=== PATIENT | male | born 1970 | race Caucasian/White ===

== ENCOUNTER 2018-03-28 12:55 | Emergency (ER) | payer MEDICAID, SELFPAY ==
[2018-03-28 13:04] VITALS: BP 123/79; PULSE 79; RESP 16; TEMP 36.9; O2SAT 98
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
[2018-03-28 13:59] LABS: Abs Immature Grans 0.03 k/cumm (0.0-0.09); Absolute Basophil Count 0.03 k/cumm (0.0-0.2); Absolute Eosinophil Count 0.28 k/cumm (0.0-0.7); Absolute Lymphocyte Count 2.06 k/cumm (1.2-3.4); Absolute Monocyte Count 1.14 k/cumm (0.11-0.7); Basophils % 0.2; Eosinophils % 2.1; HCT 46.1 % (40.0-50.0); HGB 15.3 g/dL (13.5-17.5); Immature Grans % 0.2; Lymphocytes % 15.6; Mean Corp. HGB Concentration 33.2 g/dL (32.0-36.0); Mean Corpuscular Hemoglobin 30.8 pg (27.0-33.0); Mean Corpuscular Volume 92.8 fL (80-95); Mean Platelet Volume 9.4 fL (8.0-11.0); Monocytes % 8.6; Neutrophils % 73.3; Platelet Count 376 x1000/uL (130-400); RBC 4.97 m/cumm (4.50-6.00); RBC Distribution Width 13.2 % (11.8-14.1)
[2018-03-28] MEDS: Normal Saline 1,000 ML 150 ML IV (14:00)
[2018-03-28 14:02] LABS: Absolute Neutrophil Count 9.68 k/cumm (1.2-6.7)
[2018-03-28 14:13] LABS: ALT 169 U/L (12-78); AST 123 U/L (15-37); Albumin 4.1 g/dL (3.4-5.0); Alkaline Phosphatase 82 U/L (46-116); Anion Gap 10.9 mmol/L (3-11); BUN 9 mg/dL (7-18); Bilirubin, Total 0.4 mg/dL (0.2-1.0); CO2 29.1 mmol/L (21.0-32.0); Calcium 9.6 mg/dL (8.5-10.1); Chloride 101 mmol/L (98-107); ETHANOL BLOOD 88.1 mg/dL (<3); Glucose 78 mg/dL (70-100); Potassium 4.1 mmol/L (3.5-5.1); Sodium 141 mmol/L (136-145); Total Protein 8.1 g/dL (6.4-8.2)
[2018-03-28] MEDS: Acetaminophen 500 MG TAB (14:50)
[2018-03-28] MEDS: Omnipaque 350 MG/ML 100 ML BTL IJ (15:29)
[2018-03-28 16:05] VITALS: BP 120/72; PULSE 70; RESP 16; TEMP 36.9; O2SAT 98
[2018-03-29 09:30] LABS: Kit/Specimen SENT
== END 2018-03-28 16:03 | disposition home or self-care (01) ==
PROVIDERS: Emergency Provider Emergency Medicine; PCP Nurse Practitioner Family
DX: S70.02XA Contusion of left hip, initial encounter (principal); S00.81XA Abrasion of other part of head, initial encounter; R51 Headache; V48.5XXA Car driver injured in noncollision transport accident in traffic accident, initial encounter; F10.929 Alcohol use, unspecified with intoxication, unspecified; Y90.4 Blood alcohol level of 80-99 mg/100 ml
CPT/HCPCS: 36415; 74177; 80053; 96360; 96361; 99285; 70450; 71260; 72125; 80320; 85025; 99284; J3490

== ENCOUNTER 2018-05-03 10:37 | Outpatient (REF) | payer MEDICAID, SELFPAY ==
[2018-05-03 12:34] LABS: HCT 41.5 % (40.0-50.0); HGB 13.7 g/dL (13.5-17.5); Mean Corpuscular Hemoglobin 31.1 pg (27.0-33.0); Mean Corpuscular Volume 94.3 fL (80-95); Mean Platelet Volume 10.2 fL (8.0-11.0); Platelet Count 350 x1000/uL (130-400); RBC Distribution Width 12.4 % (11.8-14.1); White Blood Cell Count 6.29 k/cumm (4.4-10.8)
[2018-05-03 12:55] LABS: ETHANOL BLOOD < 3.0 mg/dL (<3)
[2018-05-03 13:00] LABS: ALT 290 U/L (12-78); AST 164 U/L (15-37); Albumin 3.9 g/dL (3.4-5.0); Alkaline Phosphatase 81 U/L (46-116); Anion Gap 6.5 mmol/L (3-11); BUN 11 mg/dL (7-18); Bilirubin, Total 0.6 mg/dL (0.2-1.0); CO2 31.5 mmol/L (21.0-32.0); CREATININE 0.72 mg/dL (0.70-1.30); Calcium 9.5 mg/dL (8.5-10.1); Chloride 103 mmol/L (98-107); Glucose 82 mg/dL (70-100); Potassium 4.7 mmol/L (3.5-5.1); Sodium 141 mmol/L (136-145); Total Protein 7.5 g/dL (6.4-8.2)
[2018-05-04 15:01] LABS: HBs Antibody, Quant >1000.0 mIU/mL; Hepatitis B Surface Ab Positive
[2018-05-04 15:48] LABS: Hepatitis B Surface Ag Negative (NEGAT)
[2018-05-05 10:07] LABS: ALT 253 U/L (7-55); ActiTest Grade A3; ActiTest Interpretation severe activity; ActiTest Score 0.89; Alpha-2-Macroglobulin 289 mg/dL (100 - 280); Apoliprotein A1 180 mg/dL (>=120); Bilirubin, Total 0.5 mg/dL (<=1.2); FibroTest Interpretation minimal fibrosis; FibroTest Score 0.44; FibroTest Stage F1-F2; GGT 62 U/L (8 - 61); Haptoglobin 59 mg/dL (30 - 200)
[2018-05-05 12:20] LABS: HIV-1/2 Ag & Ab Screen Negative (NEGAT)
[2018-05-05 12:40] LABS: Hep A Total Ab w Rflx IgM Negative (NEGAT); Hep B Core Antibody Negative (NEGAT)
== END 2018-05-03 10:57 ==
LOC: NCHCN 10:37
PROVIDERS: PCP Nurse Practitioner Family; Visit Provider Family Medicine
DX: B19.20 Unspecified viral hepatitis C without hepatic coma (principal); Z11.4 Encounter for screening for human immunodeficiency virus [HIV]; F10.21 Alcohol dependence, in remission
CPT/HCPCS: 80053; 82172; 82247; 82977; 83010; 83883; 84460; 85027; 86704; 86706; 86709; 87340; 87389; 80320; 87522

== ENCOUNTER 2018-07-18 14:38 | Outpatient (REF) | payer MEDICAID, SELFPAY ==
[2018-07-18 13:08] LABS: HCT 42.5 % (40.0-50.0); HGB 14.1 g/dL (13.5-17.5); Mean Corp. HGB Concentration 33.2 g/dL (32.0-36.0); Mean Corpuscular Hemoglobin 30.5 pg (27.0-33.0); Mean Platelet Volume 10.4 fL (8.0-11.0); Platelet Count 260 x1000/uL (130-400); RBC 4.62 m/cumm (4.50-6.00); RBC Distribution Width 12.2 % (11.8-14.1); White Blood Cell Count 6.61 k/cumm (4.4-10.8)
[2018-07-18 13:18] LABS: ALT 24 U/L (12-78); AST 17 U/L (15-37); Alkaline Phosphatase 84 U/L (46-116); Anion Gap 9.6 mmol/L (3-11); BUN 11 mg/dL (7-18); Bilirubin, Total 0.7 mg/dL (0.2-1.0); CO2 29.4 mmol/L (21.0-32.0); CREATININE 0.72 mg/dL (0.70-1.30); Calcium 9.4 mg/dL (8.5-10.1); Chloride 102 mmol/L (98-107); Glucose 100 mg/dL (70-100); Potassium 4.1 mmol/L (3.5-5.1); Sodium 141 mmol/L (136-145); Total Protein 7.5 g/dL (6.4-8.2)
[2018-07-20 14:36] LABS: HCV RNA Detection Quantitative Undetected IU/mL (UNDECT)
== END 2018-07-18 14:58 ==
LOC: NCHCN 14:38
PROVIDERS: PCP Nurse Practitioner Family; Visit Provider Nurse Practitioner Family
DX: B19.20 Unspecified viral hepatitis C without hepatic coma (principal); F10.21 Alcohol dependence, in remission; F17.209 Nicotine dependence, unspecified, with unspecified nicotine-induced disorders; M75.101 Unspecified rotator cuff tear or rupture of right shoulder, not specified as traumatic
CPT/HCPCS: 80053; 85027; 87522

== ENCOUNTER 2018-11-08 15:18 | Outpatient (REF) | payer MEDICAID, SELFPAY ==
[2018-11-08 19:24] LABS: HCT 40.9 % (40.0-50.0); HGB 13.5 g/dL (13.5-17.5); Mean Corpuscular Hemoglobin 30.4 pg (27.0-33.0); Mean Corpuscular Volume 92.1 fL (80-95); Mean Platelet Volume 10.7 fL (8.0-11.0); Platelet Count 280 x1000/uL (130-400); RBC 4.44 m/cumm (4.50-6.00); RBC Distribution Width 12.1 % (11.8-14.1); White Blood Cell Count 7.12 k/cumm (4.4-10.8)
[2018-11-08 19:42] LABS: ALT 22 U/L (12-78); AST 16 U/L (15-37); Alkaline Phosphatase 74 U/L (46-116); Anion Gap 8.8 mmol/L (3-11); BUN 11 mg/dL (7-18); Bilirubin, Total 0.2 mg/dL (0.2-1.0); CO2 29.2 mmol/L (21.0-32.0); CREATININE 0.64 mg/dL (0.70-1.30); Calcium 9.3 mg/dL (8.5-10.1); Chloride 104 mmol/L (98-107); Glucose 86 mg/dL (70-100); Potassium 4.1 mmol/L (3.5-5.1); Sodium 142 mmol/L (136-145); Total Protein 7.1 g/dL (6.4-8.2)
[2018-11-11 07:15] LABS: HCV RNA Detection Quantitative Undetected IU/mL (UNDECT)
== END 2018-11-08 15:38 ==
LOC: NCHCN 15:18
PROVIDERS: PCP Nurse Practitioner Family; Visit Provider Family Medicine
DX: B19.20 Unspecified viral hepatitis C without hepatic coma (principal)
CPT/HCPCS: 80053; 85027; 87522

== ENCOUNTER 2018-11-16 00:51 | Outpatient (CLI) | payer MEDICAID, SELFPAY ==
--- NOTE | 2018-11-16 15:35 | DI.US_ITS ---
SYMPTOMS/DIAGNOSIS: SUBCUTANEOUS NODULE OF ABDOMINAL WALL, R22.2 ULTRASOUND OF THE ANTERIOR ABDOMINAL WALL: There is a 3.8 cm hernia in the periumbilical region, which probably contains fat. No bowel loops are seen; however, if there is any further clinical question, then correlation with CT is recommended.
== END 2018-11-16 01:11 ==
PROVIDERS: PCP Nurse Practitioner Family; Visit Provider Family Medicine
DX: R22.2 Localized swelling, mass and lump, trunk (principal); K42.9 Umbilical hernia without obstruction or gangrene
CPT/HCPCS: 76705

== ENCOUNTER 2018-12-27 07:22 | Day surgery (SDC) | payer MEDICAID, SELFPAY ==
[2018-12-27 07:32] VITALS: BP 135/80; PULSE 68; RESP 19; TEMP 36.8; O2SAT 100
[2018-12-27] MEDS: Lactated Ringers 1,000 ML 80 ML IV (08:05)
[2018-12-27] MEDS: ceFAZolin 2 GM/50 ML BAG IVPB (09:27)
[2018-12-27] MEDS: Bupivacaine 0.5% Pres-Free 30 ML VIAL (09:37)
[2018-12-27] MEDS: Normal Saline 20 ML VIAL (09:58)
--- NOTE | 2018-12-27 10:10 | W.PM.DSUDISC ---
Discharge Plan Disposition Patient Disposition: HOME Condition: Good Discharge Details Reason For Visit: Epigastric hernia repair Attending Provider: Lilly To Primary Care Provider: Ninoska Longoria Home Meds and New Rx's Prescriptions: Continued albuterol sulfate [Ventolin HFA] 60 PUFF HFA aerosol inhaler 200 puff Inhalation Q4H PRN PRNQty: 1 RF: 3 Flovent HFA 120 PUFF HFA aerosol inhaler 2 puff Inhalation BID Qty: 1 RF: 0 (DME) inhalational spacing device [Heriberto Aerosol [place] Enhancer] 1 EACH spacer 1 ea Miscellaneous PRN Qty: 1 RF: 0 methadone 10 MG/ML concentrate 48 mg PO DAILY RF: 0 Discharge Instructions Additional Instructions: The top bandage can be removed tomorrow. The steri strips will usually stick for about a week. When the edges start to curl up, they can be removed. It is okay to shower tomorrow, the water can run over the steri strips Do not swim or soak in a tub for two weeks Call for any concerns including fever, increased pain, vomiting, incision redness or drainage. Do not lift more than 15 pounds for four weeks. Walking and stairs are fine. Do not drive if limited by pain. May use Tylenol alternating with ibuprofen for pain control. Ice is also an option. The maximum dose for Tylenol is 4000 mg/day. May use ibuprofen 800 mg every 8 hours as needed. If concerned about constipation, you may use a stool softener or milk of magnesia. Referrals: Lilly To MD [ [facility] STAFF PHYSICIAN] - (Return in 10-14 days for a postoperative check with or Rachael Ray) Activity:: Do not lift more than 15 pounds for four weeks Remove Dressings/Wound Care:: 24 hours Shower/Bathe:: 24 hours Diet:: As Tolerated Discharge Orders Discharge Orders: Discharge Order (Routine); Ordered 12/27/18 Ordered By: Lilly To DS: Diagnosis Discharge Diagnosis (1) Epigastric hernia: Status: Acute
[2018-12-27 10:57] VITALS: BP 109/65; PULSE 62; RESP 14; TEMP 36.4; O2SAT 98
--- NOTE | 2018-12-27 15:49 | ROE_ITS ---
DATE OF PROCEDURE: December 27, 2018 PREOPERATIVE DIAGNOSIS: Epigastric hernia. POSTOPERATIVE DIAGNOSIS: Epigastric hernia. PROCEDURE: Epigastric hernia repair. SURGEON: Lilly To M.D. ANESTHESIA: Local and general. INDICATIONS: This is a 48-year-old man with a tender bulge in the epigastric region. This is non-re ducible. PROCEDURE: The patient was placed supine on the operating table and his upper abdomen was prepped an d draped sterilely. The skin was infiltrated with local anesthetic and a small vertical incision mad e over the lump. The subcutaneous tissue was divided with cautery down to a lump of preperitoneal fa t. This was dissected free of the surrounding subcutaneous tissue with cautery and reduced through a 1 cm fascial defect. The defect was closed with buried #0 PDS sutures with good result. The region was then injected with 20 cc's of Exparel, which is 266 mg. There was good hemostasis and the skin w as closed with a #4-0 Monocryl subcuticular stitch. He tolerated the procedure well and was stable t o recovery. cc: Ninoska Longoria N.P.
== END 2018-12-27 12:10 | disposition home or self-care (01) ==
PROVIDERS: PCP Nurse Practitioner Family; Visit Provider Surgery
PROC: (CPT 49572; principal; 2018-12-27 09:15)
DX: K43.9 Ventral hernia without obstruction or gangrene (principal); F17.210 Nicotine dependence, cigarettes, uncomplicated; F11.20 Opioid dependence, uncomplicated
CPT/HCPCS: 49572; J0131; J0690; J1100; J1885; J2405

== ENCOUNTER 2020-02-19 07:25 | Outpatient (CLI) | payer MEDICAID, SELFPAY ==
[2020-02-20 15:28] LABS: SARS-CoV-2 RNA Not Detected (NotDetected); SARS-CoV-2 RNA Source Nasal/Nares
== END 2020-02-19 07:45 ==
PROVIDERS: PCP Nurse Practitioner Family; Visit Provider Family Medicine
DX: Z11.59 Encounter for screening for other viral diseases (principal); Z01.811 Encounter for preprocedural respiratory examination
CPT/HCPCS: U0003

== ENCOUNTER 2020-02-22 03:43 | Outpatient (CLI) | payer MEDICAID, SELFPAY ==
[2020-02-22] MEDS: Albuterol HFA 18 GM 200 PUFF INH IH (08:58)
[2020-02-22] MEDS: Inhaler, Assist Device 1 EACH MC (08:59)
--- NOTE | 2020-02-26 12:08 | W.PFT ---
Date of service: 02/22/20 Time of Service: 08:05 Pulmonary Function Test Result Interpretation Spirometry: Shows mild obstructive airways disease with significant bronchodilator response Lung Volumes: No evidence of restriction, moderate to severe hyperinflation and air trapping Diffusion Capacity: Normal Airway Pressure: Normal Impression Mild obstructive airways disease with significant bronchodilator response, this is associated with moderate to severe hyperinflation and air trapping Clinical Correlation therefore is recommended.
== END 2020-02-22 04:03 ==
PROVIDERS: PCP Nurse Practitioner Family; Visit Provider Family Medicine
DX: J45.20 Mild intermittent asthma, uncomplicated (principal)
CPT/HCPCS: 94060; 94726; 94729

== ENCOUNTER 2020-12-03 11:16 | Outpatient (REF) | payer MEDICAID, SELFPAY ==
[2020-12-04 21:29] LABS: COVID-19 RT-PCR UVMMC Result Negative (Negative)
== END 2020-12-03 11:17 | disposition home or self-care (01) ==
LOC: LBN 11:16
PROVIDERS: Family Medicine; PCP Nurse Practitioner Family; Visit Provider Family Medicine
DX: Z20.822 Contact with and (suspected) exposure to COVID-19 (principal); J06.9 Acute upper respiratory infection, unspecified
CPT/HCPCS: U0003

== ENCOUNTER 2021-12-04 12:59 | Outpatient (REF) | payer MEDICAID, SELFPAY ==
[2021-12-04 15:38] LABS: HCT 45.8 % (40.0-50.0); HGB 15.3 g/dL (13.5-17.5); MCH 30.5 pg (27.0-33.0); MCHC 33.4 % (32.0-36.0); MCV 91 fL (80-95); MPV 9.9 fL (8.0-11.0); Platelet Count 378 10^3/uL (130-400); RBC 5.02 10^6/uL (4.36-5.78); RDW 12.4 % (11.8-14.1); RDW-SD 41.7 fL
[2021-12-04 15:57] LABS: ALT 19 U/L (16-63); AST 15 U/L (15-37); Albumin 3.9 g/dL (3.4-5.0); Alkaline Phosphatase 69 U/L (46-116); Anion Gap 6.9 mmol/L (3-11); BUN 13 mg/dL (7-18); Bilirubin, Total 0.4 mg/dL (0.2-1.0); CO2 30.1 mmol/L (21.0-32.0); Calcium 9.6 mg/dL (8.5-10.1); Chloride 105 mmol/L (98-107); Glucose 100 mg/dL (74-106); Potassium 4.4 mmol/L (3.5-5.1); Sodium 142 mmol/L (136-145); Total Protein 7.6 g/dL (6.4-8.2)
== END 2021-12-04 13:00 | disposition home or self-care (01) ==
LOC: NCHCN 12:59
PROVIDERS: PCP Nurse Practitioner Family; Visit Provider Nurse Practitioner Family
DX: Z00.00 Encounter for general adult medical examination without abnormal findings (principal)
CPT/HCPCS: 80053; 85027

== ENCOUNTER 2024-04-21 19:09 | Emergency (ER) | payer SELFPAY ==
[2024-04-21] VITALS (91 sets, daily range): BP systolic 110–143; BP diastolic 66–87; PULSE 75–102; RESP 12–27; TEMP 36–36.7; O2SAT 92–100
--- NOTE | 2024-04-21 19:15 | DI.RAD_ITS ---
Exam(s) XR FOREARM RT EXAM: XR FOREARM RT CLINICAL HISTORY: pain. TECHNIQUE: 2D digital imaging was performed. COMPARISON: No exams were available for comparison FINDINGS: 3 views No evidence of acute fracture of the forearm bones. No elbow joint effusion. Chronic fracture of the waist of the scaphoid bone noted at the wrist level. IMPRESSION: No acute fractures evident. No radiopaque foreign bodies. DATA REPOSITORY: RADIATION DOSE DELIVERED:
--- NOTE | 2024-04-21 19:15 | DI.RAD_ITS ---
Exam(s) XR WRIST RT COMPLETE EXAM: XR WRIST RT COMPLETE CLINICAL HISTORY: pain. TECHNIQUE: 2D digital imaging was performed. COMPARISON: No exams were available for comparison FINDINGS: 3 views No evidence of acute fracture or dislocation. There is nonacute appearing fracture at the level the waist of the scaphoid. Scapholunate distance is normal. There is some degenerative narrowing of the lateral aspect of the radio carpal joint. Other articulations appear unremarkable. No radiopaque f oreign bodies. Small 1 mm calcification is noted in the medial aspect of the wrist probably related to the triangular fibrocartilage. IMPRESSION: No acute fractures. Evidence of prior remote fracture at level the waist of the scaphoid bone. DATA REPOSITORY: RADIATION DOSE DELIVERED:
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
[2024-04-21 19:37] LABS: Abs Immature Grans 0.03 10^3/uL (0.0-0.06); Absolute Basophil Count 0.05 10^3/uL (0.0-0.2); Absolute Eosinophil Count 0.29 10^3/uL (0.0-0.7); Absolute Lymphocyte Count 2.83 10^3/uL (1.2-3.4); Absolute Monocyte Count 0.48 10^3/uL (0.1-0.8); Absolute Neutrophil Count 6.12 10^3/uL (1.2-6.7); Basophils % 0.5 %; HCT 47.1 % (40.0-50.0); HGB 15.8 g/dL (13.5-17.5); Immature Grans % 0.3 %; Lymphocytes % 28.9 %; MCH 30.6 pg (27.0-33.0); MCHC 33.5 % (32.0-36.0); MCV 91 fL (80-95); MPV 8.9 fL (8.0-11.0); Monocytes % 4.9 %; Neutrophils % 62.4 %; Platelet Count 384 10^3/uL (130-400); RBC 5.17 10^6/uL (4.36-5.78); RDW 11.9 % (11.8-14.1); RDW-SD 40.6 fL
[2024-04-21] MEDS: Diph,Pertuss(Acell),Tet Vac/Pf 0.5 ML SYR IM (19:46)
[2024-04-21 19:58] LABS: ALT 23 U/L (16-63); AST 27 U/L (15-37); Albumin 4.6 g/dL (3.4-5.0); Alkaline Phosphatase 72 U/L (46-116); Anion Gap 9.8 mmol/L (3-11); BUN 7 mg/dL (7-18); Bilirubin, Total 0.39 mg/dL (0.2-1.0); CO2 30.2 mmol/L (21.0-32.0); CREATININE 0.8 mg/dL (0.70-1.30); Calcium 8.9 mg/dL (8.5-10.1); Chloride 107 mmol/L (98-107); ETHANOL BLOOD 246.9 mg/dL (<10); Estimated GFR 106.48 (mL/min/1.73m2); Glucose 86 mg/dL (74-106); Magnesium 2.2 mg/dL (1.8-2.4); Potassium 3.4 mmol/L (3.5-5.1); Sodium 147 mmol/L (136-145); Total Protein 7.9 g/dL (6.4-8.2); Troponin I 9 ng/L (<or=76)
[2024-04-21] MEDS: Normal Saline 1,000 ML 1000 ML IV (20:03)
[2024-04-21 20:58] LABS: Troponin I 10 ng/L (<or=76)
[2024-04-21 21:34] LABS: Kit/Specimen SENT
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
--- NOTE | 2024-04-21 22:11 | NUR.NOTE ---
report given to Lazaro SALCIDO at [id number]
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
--- NOTE | 2024-04-21 22:44 | DI.VRAD_ITS ---
PROCEDURE INFORMATION: Exam: XR Right Forearm Exam date and time: 04/21/2024 9:17 PM Age: 53 years old Clinical indication: Pain; Lower or forearm; Right TECHNIQUE: Imaging protocol: Radiologic exam of the right forearm. Views: 2 views. COMPARISON: CR XR WRIST RT COMPLETE 04/21/2024 9:15 PM FINDINGS: Bones/joints: There is a chronic appearing scaphoid waist fracture. No acute fracture. Soft tissues: Normal. IMPRESSION: 1. There is a chronic appearing scaphoid waist fracture. 2. No acute fracture. Dictated and Authenticated by: Maycol Fitzgerald MD. Ordering:SOFIA Kathleen MD
--- NOTE | 2024-04-21 22:45 | DI.VRAD_ITS ---
PROCEDURE INFORMATION: Exam: XR Right Wrist Exam date and time: 04/21/2024 9:15 PM Age: 53 years old Clinical indication: Pain; Wrist; Right TECHNIQUE: Imaging protocol: Radiologic exam of the right wrist. Views: 3 or more views. COMPARISON: No relevant prior studies available. FINDINGS: Bones/joints: There is a chronic appearing scaphoid waist fracture. No acute fracture. Soft tissues: Normal. IMPRESSION: 1. There is a chronic appearing scaphoid waist fracture. 2. No acute fracture. Dictated and Authenticated by: Maycol Fitzgerald MD. Ordering:SOFIA Kathleen MD
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
[2024-04-22] VITALS (79 sets, daily range): BP systolic 90–131; BP diastolic 61–88; PULSE 82–98; RESP 16–29; O2SAT 93–98
== END 2024-04-22 07:57 | disposition home or self-care (01) ==
PROVIDERS: Emergency Medicine; Emergency Provider Emergency Medicine
DX: S02.2XXA Fracture of nasal bones, initial encounter for closed fracture (principal); V48.5XXA Car driver injured in noncollision transport accident in traffic accident, initial encounter; F10.929 Alcohol use, unspecified with intoxication, unspecified; S60.811A Abrasion of right wrist, initial encounter; M79.601 Pain in right arm; F17.210 Nicotine dependence, cigarettes, uncomplicated; Z23 Encounter for immunization
CPT/HCPCS: 00123; 80053; 90471; 90715; 93005; 96360; 96361; 99284; 70450; 71045; 72125; 73090; 73110; 80320; 83735; 84484; 85025; 93010